=== PATIENT | female | born 1985 | race Two or more races ===

== ENCOUNTER 2021-05-10 14:39 | Emergency (ER) | payer MEDICAID ==
[~2021-05-10] VITALS: Ht 172.7 cm; Wt 67.1 kg
--- NOTE | 2021-05-10 14:39 | NUR ---
PT [place] FROM [place] C/O TREMORS, NAUSEA AND EPIGASTRIC PAIN FOR 2 DAYS "IM HAVING ALCOHOL WITHDRAWAL" PT IS AAOX4, NOT IN RESPIRATORY DISTRESS, HOOKED TO [employer], KEPT RESTED AND COMFORTABLE. WILL CONTINUE TO MONITOR.
--- NOTE | 2021-05-10 14:56 | NUR ---
SEEN AND EXAMINED BY .
--- NOTE | 2021-05-10 15:12 | NUR ---
ER PHLEB AT BEDSIDE FOR BLOOD DRAW.
[2021-05-10 15:25] LABS: BASOPHILS % (AUTO) 0.2 % (0.0-2.0); HEMATOCRIT 36 % (33-45); HEMOGLOBIN 12.2 g/dL (11.5-14.8); LYMPHOCYTES # (AUTO) 0.7 K/uL (0.8-4.8); LYMPHOCYTES % (AUTO) 9.5 % (20.0-44.0); MEAN CORPUSCULAR HGB CONC 34 g/dl (31.0-36.0); MEAN CORPUSCULAR VOLUME 99 fL (82-100); MONOCYTES # (AUTO) 0.3 K/uL (0.1-1.30); MONOCYTES % (AUTO) 4.5 % (2.0-12.0); NEUTROPHILS # (AUTO) 6.5 K/uL (1.8-8.9); NEUTROPHILS % (AUTO) 85.8 % (43.0-81.0); RED BLOOD CELL COUNT(AUTO) 3.61 MIL/uL (4.0-5.2); WHITE BLOOD COUNT (AUTO) 7.6 K/uL (4.3-11.0)
[2021-05-10] MEDS ORDERED: IV NS 0.9% 1,000 ML IV ONE (15:30)
[2021-05-10] MEDS ORDERED: ONDANSETRON HCL/PF - ER 4 MG/2 ML VIAL IV ONE ×2 (15:30→18:00)
[2021-05-10] MEDS ORDERED: MORPHINE SULFATE INJ 2 MG/ML DISP.SYRIN IV ONE ×2 (15:30→18:00)
[2021-05-10] MEDS ORDERED: PANTOPRAZOLE 40 MG VIAL IV ONE (15:30)
[2021-05-10] MEDS ORDERED: ONDANSETRON HCL/PF 4 MG/2 ML VIAL ONE ×2 (15:31→18:00)
[2021-05-10 15:40] LABS: ALANINE AMINOTRANSFERASE 29 U/L (12-78); ALBUMIN 3.9 g/dL (3.4-5.0); ALCOHOL, BLOOD 84 mg/dL (0-0); ALKALINE PHOSPHATASE 61 U/L (46-116); ASPARTATE AMINOTRANSFERASE 36 U/L (15-37); BILIRUBIN,DIRECT 0.3 mg/dL (0.0-0.2); BILIRUBIN,TOTAL 1.3 mg/dL (0.2-1.0); CALCIUM, SERUM 8.4 mg/dL (8.5-10.1); CHLORIDE 101 mmol/L (98-107); CREATININE 0.9 mg/dL (0.6-1.3); GLUCOSE 86 mg/dL (74-106); POTASSIUM 3.3 mmol/L (3.5-5.1); SODIUM SERUM 139 mmol/L (136-145); TOTAL PROTEIN, SERUM 8.1 g/dL (6.4-8.2); UREA NITROGEN, BLOOD 6 mg/dL (7-18)
[2021-05-10 15:41] LABS: MAGNESIUM 1.5 mg/dL (1.8-2.4)
[2021-05-10 15:42] LABS: ACETAMINOPHEN < 0 ug/ml (10-30)
[2021-05-10] MEDS ORDERED: MORPHINE SULFATE INJ 2 MG/ML DISP.SYRIN ONE ×2 (15:42→18:01)
[2021-05-10] MEDS ORDERED: PANTOPRAZOLE 40 MG VIAL ONE (15:42)
[2021-05-10 15:59] LABS: LYMPHOCYTES % (MANUAL) 8 % (16-48); MONOCYTES % (MANUAL) 7 % (0-11.0); NEUTROPHILS % (MANUAL) 85 (42-76)
[2021-05-10 16:00] LABS: PLATELET COUNT (AUTO) 71 K/uL (150-450)
[2021-05-10] MEDS ORDERED: ONDANSETRON HCL/PF 4 MG/2 ML VIAL IV ONE (16:00)
[2021-05-10 16:10] LABS: CARBON DIOXIDE 18 mmol/L (21-32)
--- NOTE | 2021-05-10 17:45 | NUR ---
AT BEDSIDE FOR RE EVAL.
[2021-05-10] MEDS ORDERED: MAGNESIUM CHLORIDE 64 MG TABLET.SA PO SCH (18:00)
[2021-05-10] MEDS ORDERED: POTASSIUM CHLORIDE 20 MEQ TAB.PRT.SR PO ONE ×2 (18:00→18:01)
[2021-05-10] MEDS ORDERED: LORAZEPAM 0.5 MG TABLET PO ONE (18:00)
[2021-05-10] MEDS ORDERED: LORAZEPAM 0.5 MG TABLET ONE (18:01)
[2021-05-10] MEDS ORDERED: LORAZEPAM INJ 2 MG/ML VIAL ONE (18:27)
[2021-05-10] MEDS ORDERED: LORAZEPAM INJ 2 MG/ML VIAL IV ONE (18:30)
[2021-05-10] MEDS ORDERED: CHLO25CA22 PO (18:42)
[2021-05-10] MEDS ORDERED: ONDA4TAB5 PO (18:43)
[2021-05-10] MEDS ORDERED: PANT20TA2 PO (18:43)
[2021-05-10 18:50] VITALS: BP 129/78
--- NOTE | 2021-05-10 18:50 | NUR ---
IV removed. Catheter intact and site benign. Pressure and 4x4 applied to site. No bleeding noted. Patient discharged to home in stable condition. Written and verbal after care instructions given. Patient verbalizes understanding of instruction.
== END 2021-05-10 18:50 | disposition home or self-care (01) ==
LOC: ER 14:46
DX: R10.13 Epigastric pain (principal); F10.10 Alcohol abuse, uncomplicated; E87.6 Hypokalemia; E83.42 Hypomagnesemia; D69.6 Thrombocytopenia, unspecified; E86.0 Dehydration; Z79.899 Other long term (current) drug therapy; Y90.9 Presence of alcohol in blood, level not specified
CPT/HCPCS: 36415; 80048; 80076; 80143; 80320; 82962; 83690; 83735; 85007; 85025; 85730; 96361; 96374; 96375; 96376; 99284; C9113; J2060; J2270 ×2; J2405 ×3; G0480